=== PATIENT | female | born 1955 | race African-American/Black ===

== ENCOUNTER 2019-11-25 06:10 | Inpatient (IN) ==
[2019-11-25] MEDS ORDERED: DUONEB 0.5 MG/3 MG (3 mL) NEB ONE ×5 (06:17→07:43)
[2019-11-25] MEDS ORDERED: APRESOLINE INJ 20 MG VIAL IVP ONE (06:25)
[2019-11-25] MEDS ORDERED: SOLU-Medrol 125 MG VIAL IVP ONE (06:25)
[2019-11-25 06:29] VITALS: BMI 23.6
[2019-11-25] MEDS ORDERED: SOLU-Medrol 125 MG VIAL ONE (06:30)
[2019-11-25] MEDS ORDERED: APRESOLINE INJ 20 MG VIAL ONE (06:31)
[2019-11-25 06:43] LABS: BASOPHILS # (AUTO) 0.1 X10^3/uL (0.0-0.1); BASOPHILS % (AUTO) 1.3 % (0.2-1.0); EOSINOPHILS # (AUTO) 2.5 x10^3/uL (0.0-0.2); EOSINOPHILS % (AUTO) 27.9 % (0.9-2.9); HEMATOCRIT 43.4 % (36.0-47.0); HEMOGLOBIN 14.3 g/dL (12.0-16.0); LYMPHOCYTES # (AUTO) 1.5 X10^3/uL (1.3-2.9); MEAN CORPUSCULAR HGB CONC 32.9 g/dL (33.0-35.0); MEAN CORPUSCULAR VOLUME 91.3 fL (80.0-100.0); MEAN PLATELET VOLUME 8.9 fL (7.4-11.0); MONOCYTES # (AUTO) 0.6 x10^3/uL (0.3-0.8); MONOCYTES % (AUTO) 6.8 % (0.0-13.0); NEUTROPHILS # (AUTO) 4.2 x10^3/uL (2.2-4.8); PLATELET COUNT 247 X10^3/uL (150.0-450.0); RED BLOOD COUNT 4.76 X10^6/uL (3.5-5.4); RED CELL DISTRIBUTION WIDTH 14.7 % (11.6-16.5)
--- NOTE | 2019-11-25 06:47 | DR.SOBA ---
HPI Time Seen Time Seen by Provider: 11/25/19 06:25 HPI Comment HPI Comment: Asthmatic pt w/worsening cough, wheezing and sob x one day although she's been coughing for the past month; treated once by [facility] without relief; no fever, chills, myalgia; repeat occurrences every years d/t "pollen"; no cig arettes. BP has been high for at least a month; she is taking her meds as written; no cp or palpitations. PMH PMH Past Medical History: Asthma and Hypertension Past Surgical History: Yes Surgical History: Family History Family Medical History: Hypertension infectious screening Isolation: Standard ROS Review of Systems Constitutional: No Symptoms Reported ENTM: No Symptoms Reported Respiratoy: See HPI Cardiovascular: No Symptoms Reported Gastrointestinal/Abdominal: No Symptoms Reported Genitourinary: No Symptoms Reported Neurological: No Symptoms Reported Musculoskeletal: No Symptoms Reported Integumentary: No Symptoms Reported Hematologic/Lymphatic: No Symptoms Reported Endocrine: No Symptoms Reported Psychiatric: No Symptoms Reported PE Vital Signs Vitals: Temperature 978 F Pulse Rate 75 Respiratory Rate 26 Blood Pressure 150/77 O2 Sat by Pulse Oximetry 95 General Limitations: No Limitations Head Head Exam: Normal Inspection, Atraumatic and Normocephalic Eyes Eye exam: Normal Appearance and PERRL ENT ENT Exam: Normal Exam Neck Neck Exam: Normal Inspection, Full ROM and Trachea Midline Chest Chest Inspection: Normal Inspection and Symmetric Chest Wall Rise Respiratory Respiratory Exam: Accessory Muscle Use, Prolonged Expiratory Phase and Respiratory Distress Respiratory Exam: Bilateral: Wheezing and Bilateral: Rhonchi Cardiovascular Cardiovascular Exam: Normal Rhythm and Tachycardia Abdominal Exam Abdominal Exam: Normal Inspection, Normal Bowel Sounds and Soft Extremities Extremities Exam: Normal Inspection and Full ROM Neurologic Neurological Exam: Alert, Oriented X3 and CN II-XII Intact Psychiatric Psychiatric Exam: Normal Affect Skin Skin Exam: Warm and Dry COURSE Treatment Treatment: 0743 sleeping w/audible wheezing Reevaluation 1st: Improved (0700 MINIMALLY IMPROVED) ROR Labs Reviewed Laboratory Results Reviewed?: Yes Result Diagrams: 11/25/19 06:34 11/25/19 06:34 Laboratory: WBC 9.0 X10^3/uL (3.6-10.0) 11/25/19 06:34 RBC 4.76 X10^6/uL (3.5-5.4) 11/25/19 06:34 Hgb 14.3 g/dL (12.0-16.0) 11/25/19 06:34 Hct 43.4 % (36.0-47.0) 11/25/19 06:34 MCV 91.3 fL (80.0-100.0) 11/25/19 06:34 MCH 30.0 pg (27.0-34.0) 11/25/19 06:34 MCHC 32.9 g/dL (33.0-35.0) L 11/25/19 06:34 RDW 14.7 % (11.6-16.5) 11/25/19 06:34 Plt Count 247 X10^3/uL (150.0-450.0) 11/25/19 06:34 Plt Count Comment Adequate (ADEQUATE) 11/25/19 06:34 MPV 8.9 fL (7.4-11.0) 11/25/19 06:34 Neut % (Auto) 47.0 % (42.0-75.0) 11/25/19 06:34 Lymph % (Auto) 17.0 % (21.0-51.0) L 11/25/19 06:34 [place] % (Auto) 6.8 % (0.0-13.0) 11/25/19 06:34 Eos % (Auto) 27.9 % (0.9-2.9) H 11/25/19 06:34 Baso % (Auto) 1.3 % (0.2-1.0) H 11/25/19 06:34 Neut # (Auto) 4.2 x10^3/uL (2.2-4.8) 11/25/19 06:34 Lymph # (Auto) 1.5 X10^3/uL (1.3-2.9) 11/25/19 06:34 [place]urt # (Auto) 0.6 x10^3/uL (0.3-0.8) 11/25/19 06:34 Eos # (Auto) 2.5 x10^3/uL (0.0-0.2) H 11/25/19 06:34 Baso # (Auto) 0.1 X10^3/uL (0.0-0.1) 11/25/19 06:34 Absolute Nucleated RBC 0.0 /100WBC 11/25/19 06:34 Total Counted 100 11/25/19 06:34 Neutrophils % (Manual) 56 % (39-76) 11/25/19 06:34 Lymphocytes % (Manual) 16 % (13-43) 11/25/19 06:34 Monocytes % (Manual) 5 % (4-9) 11/25/19 06:34 Eosinophils % (Manual) 23 % (0-6) H 11/25/19 06:34 Plt Morphology Comment Normal (NORMAL) 11/25/19 06:34 RBC Morphology Normal (NORMAL) 11/25/19 06:34 Sodium 143 mmol/L (136-145) 11/25/19 06:34 Corrected Sodium TNP 11/25/19 06:34 Potassium 3.2 mmol/L (3.5-5.1) L 11/25/19 06:34 Chloride 106 mmol/L (98-107) 11/25/19 06:34 Carbon Dioxide 28.8 mmol/L (21-32) 11/25/19 06:34 BUN 8 mg/dL (7-18) 11/25/19 06:34 Creatinine 0.81 mg/dL (0.55-1.02) 11/25/19 06:34 Est GFR (MDRD) Af Amer > 60 (>60) 11/25/19 06:34 Est GFR (MDRD) Non-Af > 60 (>60) 11/25/19 06:34 Glucose 96 mg/dL (65-99) 11/25/19 06:34 Calcium 9.4 mg/dL (8.5-10.1) 11/25/19 06:34 Corrected Calcium TNP 11/25/19 06:34 Total Bilirubin 0.40 mg/dL (0.2-1.0) 11/25/19 06:34 AST 21 Units/L (15-37) 11/25/19 06:34 ALT 14 Units/L (12-78) 11/25/19 06:34 Alkaline Phosphatase 131 Units/L (46-116) H 11/25/19 06:34 Total Protein 7.6 g/dL (6.4-8.2) 11/25/19 06:34 Albumin 3.9 g/dL (3.4-5.0) 11/25/19 06:34 Globulin 3.7 g/dL (2.5-4.5) 11/25/19 06:34 Albumin/Globulin Ratio 1.1 Ratio (1.1-2.1) 11/25/19 06:34 Influenza Type A (PCR) Negative (NEGATIVE) 11/25/19 06:43 Influenza Type B (PCR) Negative (NEGATIVE) 11/25/19 06:43 XRAY XRAY Interpreted by: Radiologist X-ray Results: PCXR: Findings consistent with bronchopneumonia, consisting of a focal left perihilar infiltrate and hazy interstitial lower lobe infiltrates. Radiographic follow-up recommended to ensure clearance. Opioid Opioid Risk Tool Age (Miguel box if 16-45): No History of Preadolescent Sexual Abuse: No Total: 0 Total Score Risk Category: Low Risk Copyright: Denny MCGHEE predicting aberrant behaviors Diagnosis Discharge Problem: Acute hypokalemia Pneumonia Qualifiers: Pneumonia type: due to unspecified organism Laterality: left Lung location: lower lobe of lung Qualified Code(s): J18.9 - Pneumonia, unspecified organism Instructions Forms: Excuse From Work Patient Portal
[2019-11-25 06:51] LABS: ALANINE AMINOTRANSFERASE 14 Units/L (12-78); ALBUMIN 3.9 g/dL (3.4-5.0); ALKALINE PHOSPHATASE 131 Units/L (46-116); ASPARTATE AMINO TRANSFERASE 21 Units/L (15-37); BLOOD UREA NITROGEN 8 mg/dL (7-18); CALCIUM 9.4 mg/dL (8.5-10.1); CARBON DIOXIDE 28.8 mmol/L (21-32); CHLORIDE 106 mmol/L (98-107); CREATININE 0.81 mg/dL (0.55-1.02); SODIUM 143 mmol/L (136-145); TOTAL PROTEIN 7.6 g/dL (6.4-8.2); eGFR NON BLACK RACES > 60 (>60)
--- NOTE | 2019-11-25 06:51 | RAD ---
HISTORYSOB, WHEEZINGSTUDYCHEST, 1 VIEWCOMPARISONNoneTECHNIQUEPortable chest x-rayFINDINGSThere is a left perihilar infiltrate. Subtle haziness of the interstitium is also demonstrated within the bilateral lung bases. Findings are consistent with bronchopneumonia. The heart size is normal. The aorta is mildly tortuous. The pleural spaces are clear. There is no free air or pneumothorax. No acute bony abnormalities are identified.IMPRESSIONFindings consistent with bronchopneumonia, consisting of a focal left perihilar infiltrate and hazy interstitial lower lobe infiltrates. Radiographic follow-up recommended to ensure clearanceElectronically signed by: GENEVA ALBERTO (Nov 25, 2019 06:49:52)
[2019-11-25 07:02] LABS: PLATELET MORPHOLOGY COMMENT NORMAL (NORMAL)
[2019-11-25] MEDS ORDERED: ROCEPHIN VIAL 1 GRAM 1 G in NS 100 ML IV + SPIKE MINIBAG* 100 ML IV ONE (07:06)
[2019-11-25] MEDS ORDERED: ZITHROMAX INJ 500 MG VIAL 500 MG in NS 250 ML IV 250 ML IV SCH (07:07)
[2019-11-25] MEDS ORDERED: K-DUR TAB 20 MEQ PO STA (07:42)
[2019-11-25] MEDS ORDERED: ZITHROMAX INJ 500 MG VIAL IV ONE (07:47)
[2019-11-25] MEDS ORDERED: K-DUR TAB 20 MEQ PO ONE (07:47)
[2019-11-25] MEDS ORDERED: ROCEPHIN VIAL 1 GRAM ONE (07:48)
[2019-11-25] MEDS ORDERED: NS 250 ML IV 500 ML IV ONE (07:49)
[2019-11-25] MEDS ORDERED: NS 100 ML IV + SPIKE MINIBAG* 100 ML IV ONE (07:49)
[2019-11-25] MEDS ORDERED: K-DUR TAB 20 MEQ PO SCH (09:00)
[2019-11-25] MEDS: ZESTORETIC 20/25 MG PO SCH (11:23)
[2019-11-25] MEDS: DUONEB 0.5 MG/3 MG (3 mL) NEB SCH ×3 (12:10→20:55)
--- NOTE | 2019-11-25 12:25 | DR.H&P ---
H&P - History & Physical for Day of: H&P Date: 11/25/19 - History of Present Illness History of Present Illness: 64 BF ER ADMISSION WITH CO SOB, WHEEZING, CCC. She is asthmatic pt w/worsening cough, wheezing and sob x one day although she's been coughing for the past month; treated in office at [facility] with IM rocephin, IM kenalog and decadron and po levaquin without improvement. Pt no fever, chills, myalgia; repeat occurrences every years d/t "pollen"; no cigarettes. BP has been high for at least a month; she is taking her meds as written; no cp or palpitations. - Past Medical History Past Medical History: Asthma, COPD, Hypertension - Past Surgical History Surgical History: - Family History Family Medical History: Hypertension - Social History Does patient currently use any type of tobacco product: No Have you used tobacco products in the last 12 months: No Type of Tobacco Use: None Does any household member use tobacco: No Alcohol Use: None - Medications Home Medications: No Known Drug Allergies Allergy (Verified 11/25/19 08:15) - Physical Exam Vital Signs: Temperature 97.7 F Pulse Rate [Left] 101 Pulse Rate 92 Respiratory Rate 22 Blood Pressure [Left Arm] 187/94 Blood Pressure 184/87 O2 Sat by Pulse Oximetry 97 Oriented: Normal Eyes: Normal Ear: Normal Nose: Normal Throat: Normal Respiratory: Diminished Throughout, Wheezes Throughout Cardiovascular: Tachycardia. negative: Edema Tenderness: Normal Skin: Decreased Turgur Musculoskeletal: Back:Lumbar Mood Description: Angry Affect: Anxious Speech Pattern: Clear, Appropriate - Assessment/Plan (1) Asthma attack Qualifiers: Asthma severity: moderate Asthma persistence: unspecified Qualified Code(s): J45.901 - Unspecified asthma with (acute) exacerbation Status: Acute Plan: admit, supplemental o2. iv atbx, iv solu medrol. genlte iv hydration cxr on admission, abg. verify home medications. resp therapy, sputum culture (2) Acute bronchitis Status: Acute (3) Hypertensive urgency Status: Acute - Allergies Allergies/Adverse Reactions: Allergies Allergy/AdvReac Type Severity Reaction Status Date / Time No Known Drug Allergies Allergy Verified 11/25/19 08:15
[2019-11-25] MEDS: NS 1000 ML 1,000 ML IV SCH ×2 (14:12→22:00)
[2019-11-25 15:02] LABS: MAGNESIUM 1.9 mg/dL (1.7-2.9)
[2019-11-25] MEDS: PROTONIX INJ 40 MG VIAL IVP SCH (15:41)
[2019-11-25] MEDS: SOLU-Medrol 40 MG VIAL IVP SCH ×2 (15:41→21:01)
[2019-11-25] MEDS: APRESOLINE INJ 20 MG VIAL IVP PRN (15:42)
[2019-11-25] MEDS: PULMICORT NEB TX 0.5 MG NEB SCH (20:55)
[2019-11-25] MEDS: SINGULAIR TAB 10 MG PO SCH (21:00)
[2019-11-25] MEDS: NORCO 5/325 MG TAB PO PRN (23:39)
[2019-11-26] MEDS: APRESOLINE INJ 20 MG VIAL IVP PRN (00:47)
[2019-11-26] MEDS: DUONEB 0.5 MG/3 MG (3 mL) NEB SCH ×6 (01:02→20:40)
[2019-11-26] MEDS: NS 1000 ML 1,000 ML IV SCH ×2 (03:54→21:12)
[2019-11-26 06:38] LABS: BASOPHILS % (AUTO) 0.1 % (0.2-1.0); HEMATOCRIT 42.6 % (36.0-47.0); LYMPHOCYTES # (AUTO) 0.7 X10^3/uL (1.3-2.9); LYMPHOCYTES % (AUTO) 6.5 % (21.0-51.0); MEAN CORPUSCULAR HEMOGLOBIN 29.9 pg (27.0-34.0); MEAN CORPUSCULAR HGB CONC 32.9 g/dL (33.0-35.0); MEAN CORPUSCULAR VOLUME 90.9 fL (80.0-100.0); MEAN PLATELET VOLUME 9.7 fL (7.4-11.0); MONOCYTES # (AUTO) 0.5 x10^3/uL (0.3-0.8); MONOCYTES % (AUTO) 3.9 % (0.0-13.0); NEUTROPHILS # (AUTO) 10.3 x10^3/uL (2.2-4.8); NEUTROPHILS % (AUTO) 89.5 % (42.0-75.0); PLATELET COUNT 255 X10^3/uL (150.0-450.0); RED BLOOD COUNT 4.69 X10^6/uL (3.5-5.4); RED CELL DISTRIBUTION WIDTH 14.7 % (11.6-16.5); WHITE BLOOD COUNT 11.5 X10^3/uL (3.6-10.0)
[2019-11-26 06:40] LABS: ALANINE AMINOTRANSFERASE 15 Units/L (12-78); ALBUMIN 3.5 g/dL (3.4-5.0); ALKALINE PHOSPHATASE 119 Units/L (46-116); ASPARTATE AMINO TRANSFERASE 15 Units/L (15-37); BLOOD UREA NITROGEN 13 mg/dL (7-18); CALCIUM 9.7 mg/dL (8.5-10.1); CARBON DIOXIDE 23.2 mmol/L (21-32); CHLORIDE 108 mmol/L (98-107); COR NA(FOR HYPERGLY) 143 mmol/L (136-145); CREATININE 0.82 mg/dL (0.55-1.02); SODIUM 142 mmol/L (136-145); TOTAL PROTEIN 7.2 g/dL (6.4-8.2); eGFR NON BLACK RACES > 60 (>60)
[2019-11-26] MEDS: PULMICORT NEB TX 0.5 MG NEB SCH ×2 (08:22→20:40)
[2019-11-26] MEDS: ZESTORETIC 20/25 MG PO SCH (08:59)
[2019-11-26] MEDS: SOLU-Medrol 40 MG VIAL IVP SCH (08:59)
[2019-11-26] MEDS: PROTONIX INJ 40 MG VIAL IVP SCH (08:59)
[2019-11-26 09:15] LABS: ABG BASE EXCESS -0.3 mmol/L (-2.0-2.0); ABG HCO3 22.6 mmol/L (22-26)
[2019-11-26] MEDS ORDERED: ROBITUSSIN DM PO PRN (14:09)
[2019-11-26] MEDS: LOVENOX INJ 40 MG SYR SC SCH (14:12)
[2019-11-26] MEDS: LEVAQUIN PREMIX IV 500 MG 500 MG/100 ML BAG IV SCH (18:36)
[2019-11-26] MEDS: NORCO 5/325 MG TAB PO PRN (18:38)
[2019-11-26] MEDS: NORVASC TAB 5 MG PO SCH (18:38)
[2019-11-26] MEDS: ROBITUSSIN DM PO SCH ×2 (18:48→21:11)
[2019-11-26] MEDS: SINGULAIR TAB 10 MG PO SCH (21:11)
[2019-11-27] MEDS: ROBITUSSIN DM PO SCH ×6 (01:00→20:20)
[2019-11-27] MEDS: DUONEB 0.5 MG/3 MG (3 mL) NEB SCH ×6 (01:15→21:15)
[2019-11-27] MEDS: NS 1000 ML 1,000 ML IV SCH ×2 (03:03→20:19)
[2019-11-27 06:08] LABS: BASOPHILS % (AUTO) 0.2 % (0.2-1.0); HEMOGLOBIN 12.7 g/dL (12.0-16.0); LYMPHOCYTES # (AUTO) 1.1 X10^3/uL (1.3-2.9); LYMPHOCYTES % (AUTO) 7.8 % (21.0-51.0); MEAN CORPUSCULAR HEMOGLOBIN 29.8 pg (27.0-34.0); MEAN CORPUSCULAR HGB CONC 32.6 g/dL (33.0-35.0); MEAN CORPUSCULAR VOLUME 91.2 fL (80.0-100.0); MEAN PLATELET VOLUME 9.8 fL (7.4-11.0); MONOCYTES # (AUTO) 1.1 x10^3/uL (0.3-0.8); MONOCYTES % (AUTO) 7.2 % (0.0-13.0); NEUTROPHILS # (AUTO) 12.3 x10^3/uL (2.2-4.8); NEUTROPHILS % (AUTO) 84.8 % (42.0-75.0); PLATELET COUNT 230 X10^3/uL (150.0-450.0); RED BLOOD COUNT 4.27 X10^6/uL (3.5-5.4); RED CELL DISTRIBUTION WIDTH 15.3 % (11.6-16.5); WHITE BLOOD COUNT 14.5 X10^3/uL (3.6-10.0)
[2019-11-27 06:13] LABS: ALANINE AMINOTRANSFERASE 14 Units/L (12-78); ALBUMIN 3.1 g/dL (3.4-5.0); ALKALINE PHOSPHATASE 93 Units/L (46-116); ASPARTATE AMINO TRANSFERASE 14 Units/L (15-37); BLOOD UREA NITROGEN 14 mg/dL (7-18); CALCIUM 8.9 mg/dL (8.5-10.1); CARBON DIOXIDE 24.1 mmol/L (21-32); CHLORIDE 109 mmol/L (98-107); COR CA(FOR HYPOALB) 9.6 mg/dL (8.5-10.1); CREATININE 0.88 mg/dL (0.55-1.02); SODIUM 143 mmol/L (136-145); TOTAL PROTEIN 6.4 g/dL (6.4-8.2); eGFR NON BLACK RACES > 60 (>60)
[2019-11-27] MEDS ORDERED: KLOR-CON PO PRN (06:37)
[2019-11-27] MEDS ORDERED: K-RIDER 10 MEQ/NS 100 ML 10 MEQ/100 ML BAG IV PRN (06:37)
[2019-11-27] MEDS ORDERED: K-DUR TAB 20 MEQ PO PRN (06:37)
[2019-11-27] MEDS ORDERED: MAGNESIUM SULFATE 1 GRAM/100 mL PREMIX 1 GM/100 ML BAG IV PRN (06:37)
[2019-11-27] MEDS ORDERED: POTASSIUM CHLORIDE LIQ 20 MEQ UDC PO PRN (06:37)
[2019-11-27] MEDS ORDERED: MICRO K EXTEN CAP 10 MEQ PO PRN (06:37)
[2019-11-27] MEDS ORDERED: POTASSIUM CHL 40 MEQ/NS 0.45% 500 ML IV PRN (06:37)
[2019-11-27] MEDS ORDERED: POTASSIUM CHL 60 MEQ/NS 0.45% 500 ML IV PRN (06:37)
[2019-11-27] MEDS: LEVAQUIN PREMIX IV 500 MG 500 MG/100 ML BAG IV SCH (08:29)
[2019-11-27] MEDS: ZESTORETIC 20/25 MG PO SCH (08:30)
[2019-11-27] MEDS: NORVASC TAB 5 MG PO SCH (08:30)
[2019-11-27] MEDS: LOVENOX INJ 40 MG SYR SC SCH (08:31)
[2019-11-27] MEDS: PROTONIX INJ 40 MG VIAL IVP SCH (08:31)
[2019-11-27] MEDS: PULMICORT NEB TX 0.5 MG NEB SCH ×2 (09:27→21:15)
--- NOTE | 2019-11-27 10:37 | RAD ---
HISTORYFollow up pneumoniaSTUDYChest PA and lateral [id number] is a small area of persistent left parahilar infiltrate. Heart size remains normal with tortuous dilatation of the aorta and clear right chest. There is no new consolidation or developing pleural fluid.IMPRESSIONImproving but persistent left parahilar infiltrate. Continued follow-up indicated.Electronically signed by: KINA HUERTA (Nov 27, 2019 10:35:34)
[2019-11-27] MEDS: DIFLUCAN 200 MG IV PREMIX* 200 MG/100 ML BAG IV SCH (11:43)
[2019-11-27] MEDS: NORCO 5/325 MG TAB PO PRN (17:00)
--- NOTE | 2019-11-27 17:58 | PCM.PROG ---
Progress Note - Progress Note for Day of Date of Exam: 11/27/19 - Subjective Subjective: Mrs. Mcnamara is a pleasant 64-year-old black female who was a patient of our private practice. She was an ER admission early yesterday morning with complaints of shortness of breath, wheezing, cough, cold, and congestion. The patient does have a history of asthma and chronic obstructive pulmonary disease, as well as uncontrolled hypertension. She states that she had been out of her medication at home. We treated her for bronchitis earlier last month with IM Rocephin and IM Kenalog and Decadron. She had taken a round of Levaquin without improvement, however, the patient states that she thought it would get better. She did not follow up in the office. The patient reported that she had been out day night and she reported that she had no sleep at all, just very short of breath. The patient was noted to be hypoxic on arrival with PO2 of 76. Her PCO2 was 31. She was started on supplemental oxygen, respiratory therapy, IV antibiotics, and IV steroids. Her potassium was 3.2, it was up to 3.4 this morning. Renal function BUN 14, CREAT 0.88. Her chest x-ray on admission showed bronchopneumonia with a left focal perihilar infiltrate. Repeat CXR this am revealed :Improving but persistent left parahilar infiltrate. We encouraged sputum production. She states that she coughed up a good bit last night. We did have a sputum obtained showing moderate gram positive cocci at this time, as well as some yeast. Her blood pressure medication had been resumed. - Past Medical Family Social History Past Med/Fam/Surg Hx: No changes since H&P Allergies: Allergies No Known Drug Allergies Allergy (Verified 11/25/19 08:15) - Review of Systems ROS: No change since H&P - Vital Signs and I&O's Vital Signs: Temperature 98.6 F Pulse Rate [Left] 96 Pulse Rate 94 Respiratory Rate 20 Blood Pressure [Left Arm] 160/97 Blood Pressure 184/87 O2 Sat by Pulse Oximetry 98 Intake and Output: Intake & Output 11/25/19 11/26/19 11/27/19 11/28/19 11:59 11:59 11:59 11:59 Intake Total 1760 / 1760 2272 / 2272 840 / 840 Balance 1760 / 1760 2272 / 2272 840 / 840 - Physical Exam Oriented: Normal Eyes: Normal Ear: Normal Nose: Normal Throat: Normal Respiratory: Diminished, Wheezes, Rhonchi Cardiovascular: Tachycardia. negative: Edema Tenderness: Normal Skin: Decreased Turgur Musculoskeletal: Back:Lumbar Mood Description: Angry Affect: Anxious Speech Pattern: Clear, Appropriate - Laboratory and Diagnostics Result Diagrams: 11/27/19 05:18 11/27/19 11:11 Labs: 11/25/19 09:00 Sputum - Expectorated Sputum Sputum Culture - Final 11/25/19 09:00 Sputum - Expectorated Sputum - Final 11/25/19 09:15 Blood Blood Culture - Preliminary 11/25/19 08:20 Blood Blood Culture - Preliminary Laboratory WBC 14.5 X10^3/uL (3.6-10.0) H 11/27/19 05:18 RBC 4.27 X10^6/uL (3.5-5.4) 11/27/19 05:18 Hgb 12.7 g/dL (12.0-16.0) 11/27/19 05:18 Hct 39.0 % (36.0-47.0) 11/27/19 05:18 MCV 91.2 fL (80.0-100.0) 11/27/19 05:18 MCH 29.8 pg (27.0-34.0) 11/27/19 05:18 MCHC 32.6 g/dL (33.0-35.0) L 11/27/19 05:18 RDW 15.3 % (11.6-16.5) 11/27/19 05:18 Plt Count 230 X10^3/uL (150.0-450.0) 11/27/19 05:18 Plt Count Comment Adequate (ADEQUATE) 11/25/19 06:34 MPV 9.8 fL (7.4-11.0) 11/27/19 05:18 Neut % (Auto) 84.8 % (42.0-75.0) H 11/27/19 05:18 Lymph % (Auto) 7.8 % (21.0-51.0) L 11/27/19 05:18 [place] % (Auto) 7.2 % (0.0-13.0) 11/27/19 05:18 Eos % (Auto) 0.0 % (0.9-2.9) L 11/27/19 05:18 Baso % (Auto) 0.2 % (0.2-1.0) 11/27/19 05:18 Neut # (Auto) 12.3 x10^3/uL (2.2-4.8) H 11/27/19 05:18 Lymph # (Auto) 1.1 X10^3/uL (1.3-2.9) L 11/27/19 05:18 [place] # (Auto) 1.1 x10^3/uL (0.3-0.8) H 11/27/19 05:18 Eos # (Auto) 0.0 x10^3/uL (0.0-0.2) 11/27/19 05:18 Baso # (Auto) 0.0 X10^3/uL (0.0-0.1) 11/27/19 05:18 Absolute Nucleated RBC 0.0 /100WBC 11/27/19 05:18 Total Counted 100 11/25/19 06:34 Neutrophils % (Manual) 56 % (39-76) 11/25/19 06:34 Lymphocytes % (Manual) 16 % (13-43) 11/25/19 06:34 Monocytes % (Manual) 5 % (4-9) 11/25/19 06:34 Eosinophils % (Manual) 23 % (0-6) H 11/25/19 06:34 Plt Morphology Comment Normal (NORMAL) 11/25/19 06:34 RBC Morphology Normal (NORMAL) 11/25/19 06:34 Sample Site [facility] 11/26/19 09:06 ABG pH 7.470 (7.35-7.45) H 11/26/19 09:06 ABG pCO2 31.0 mmHg (35.0-45.0) L 11/26/19 09:06 ABG pO2 76.0 mmHg (80.0-100.0) L 11/26/19 09:06 ABG HCO3 22.6 mmol/L (22-26) 11/26/19 09:06 ABG O2 Saturation 96.0 % (90-100) 11/26/19 09:06 ABG Base Excess -0.3 mmol/L (-2.0-2.0) 11/26/19 09:06 Nic Test N/a 11/26/19 09:06 A-a Gradient 85.0 mmHg 11/26/19 09:06 FiO2 28.0 11/26/19 09:06 Blood Gas Comments Pt sabrina well elj 11/26/19 09:06 Sodium 143 mmol/L (136-145) 11/27/19 05:18 Corrected Sodium TNP 11/27/19 05:18 Potassium 3.4 mmol/L (3.5-5.1) L 11/27/19 11:11 Chloride 109 mmol/L (98-107) H 11/27/19 05:18 Carbon Dioxide 24.1 mmol/L (21-32) 11/27/19 05:18 BUN 14 mg/dL (7-18) 11/27/19 05:18 Creatinine 0.88 mg/dL (0.55-1.02) 11/27/19 05:18 Est GFR (MDRD) Af Amer > 60 (>60) 11/27/19 05:18 Est GFR (MDRD) Non-Af > 60 (>60) 11/27/19 05:18 Glucose 100 mg/dL (65-99) H 11/27/19 05:18 Calcium 8.9 mg/dL (8.5-10.1) 11/27/19 05:18 Corrected Calcium 9.6 mg/dL (8.5-10.1) 11/27/19 05:18 Magnesium 1.8 mg/dL (1.7-2.9) 11/27/19 05:18 Total Bilirubin 0.30 mg/dL (0.2-1.0) 11/27/19 05:18 AST 14 Units/L (15-37) L 11/27/19 05:18 ALT 14 Units/L (12-78) 11/27/19 05:18 Alkaline Phosphatase 93 Units/L (46-116) 11/27/19 05:18 Total Protein 6.4 g/dL (6.4-8.2) 11/27/19 05:18 Albumin 3.1 g/dL (3.4-5.0) L 11/27/19 05:18 Globulin 3.3 g/dL (2.5-4.5) 11/27/19 05:18 Albumin/Globulin Ratio 0.9 Ratio (1.1-2.1) L 11/27/19 05:18 Influenza Type A (PCR) Negative (NEGATIVE) 11/25/19 06:43 Influenza Type B (PCR) Negative (NEGATIVE) 11/25/19 06:43 - Plan (1) Asthma attack Status: Acute Qualifiers: Asthma severity: moderate Asthma persistence: unspecified Qualified Code(s): J45.901 - Unspecified asthma with (acute) exacerbation Plan: continue supplemental o2. iv atbx, iv solu medrol. genlte iv hydration, abg. resp therapy, sputum culture obtained on admission (2) Acute bronchitis Status: Acute (3) Hypertensive urgency Status: Acute
[2019-11-27] MEDS: SINGULAIR TAB 10 MG PO SCH (20:20)
[2019-11-28] MEDS: ROBITUSSIN DM PO SCH ×6 (01:11→21:42)
[2019-11-28] MEDS: DUONEB 0.5 MG/3 MG (3 mL) NEB SCH ×6 (01:18→20:56)
[2019-11-28] MEDS: NS 1000 ML 1,000 ML IV SCH (02:20)
[2019-11-28 06:42] LABS: BASOPHILS % (AUTO) 0.5 % (0.2-1.0); EOSINOPHILS # (AUTO) 0.7 x10^3/uL (0.0-0.2); EOSINOPHILS % (AUTO) 8.6 % (0.9-2.9); HEMATOCRIT 41.4 % (36.0-47.0); HEMOGLOBIN 13.4 g/dL (12.0-16.0); LYMPHOCYTES # (AUTO) 1.7 X10^3/uL (1.3-2.9); LYMPHOCYTES % (AUTO) 19.8 % (21.0-51.0); MEAN CORPUSCULAR HEMOGLOBIN 29.6 pg (27.0-34.0); MEAN CORPUSCULAR HGB CONC 32.3 g/dL (33.0-35.0); MEAN CORPUSCULAR VOLUME 91.7 fL (80.0-100.0); MEAN PLATELET VOLUME 10.3 fL (7.4-11.0); MONOCYTES # (AUTO) 0.8 x10^3/uL (0.3-0.8); NEUTROPHILS # (AUTO) 5.1 x10^3/uL (2.2-4.8); NEUTROPHILS % (AUTO) 61.1 % (42.0-75.0); PLATELET COUNT 201 X10^3/uL (150.0-450.0); RED BLOOD COUNT 4.51 X10^6/uL (3.5-5.4); RED CELL DISTRIBUTION WIDTH 15.1 % (11.6-16.5); WHITE BLOOD COUNT 8.4 X10^3/uL (3.6-10.0)
[2019-11-28 07:24] LABS: ALANINE AMINOTRANSFERASE 14 Units/L (12-78); ALBUMIN 3.2 g/dL (3.4-5.0); ALKALINE PHOSPHATASE 100 Units/L (46-116); ASPARTATE AMINO TRANSFERASE 20 Units/L (15-37); BLOOD UREA NITROGEN 12 mg/dL (7-18); CHLORIDE 106 mmol/L (98-107); COR CA(FOR HYPOALB) 9.6 mg/dL (8.5-10.1); CREATININE 0.73 mg/dL (0.55-1.02); SODIUM 141 mmol/L (136-145); TOTAL PROTEIN 6.6 g/dL (6.4-8.2); eGFR NON BLACK RACES > 60 (>60)
[2019-11-28] MEDS: PULMICORT NEB TX 0.5 MG NEB SCH ×2 (09:14→20:56)
[2019-11-28] MEDS: LEVAQUIN PREMIX IV 500 MG 500 MG/100 ML BAG IV SCH (10:56)
[2019-11-28] MEDS: ZESTORETIC 20/25 MG PO SCH (10:57)
[2019-11-28] MEDS: PROTONIX INJ 40 MG VIAL IVP SCH (10:57)
[2019-11-28] MEDS: NORVASC TAB 5 MG PO SCH (10:57)
[2019-11-28] MEDS: LOVENOX INJ 40 MG SYR SC SCH (10:58)
[2019-11-28] MEDS: DIFLUCAN 200 MG IV PREMIX* 200 MG/100 ML BAG IV SCH (12:31)
[2019-11-28] MEDS: SINGULAIR TAB 10 MG PO SCH (21:42)
[2019-11-29] MEDS: ROBITUSSIN DM PO SCH ×3 (01:00→09:43)
[2019-11-29] MEDS: DUONEB 0.5 MG/3 MG (3 mL) NEB SCH ×3 (01:05→08:24)
[2019-11-29] MEDS: NS 1000 ML 1,000 ML IV SCH (05:31)
[2019-11-29 06:41] LABS: BASOPHILS % (AUTO) 0.5 % (0.2-1.0); EOSINOPHILS # (AUTO) 1.7 x10^3/uL (0.0-0.2); EOSINOPHILS % (AUTO) 16.8 % (0.9-2.9); HEMATOCRIT 40.6 % (36.0-47.0); HEMOGLOBIN 13.4 g/dL (12.0-16.0); LYMPHOCYTES # (AUTO) 1.5 X10^3/uL (1.3-2.9); LYMPHOCYTES % (AUTO) 15.6 % (21.0-51.0); MEAN CORPUSCULAR VOLUME 90.9 fL (80.0-100.0); MEAN PLATELET VOLUME 9.7 fL (7.4-11.0); MONOCYTES # (AUTO) 0.9 x10^3/uL (0.3-0.8); MONOCYTES % (AUTO) 8.9 % (0.0-13.0); NEUTROPHILS # (AUTO) 5.8 x10^3/uL (2.2-4.8); NEUTROPHILS % (AUTO) 58.2 % (42.0-75.0); PLATELET COUNT 234 X10^3/uL (150.0-450.0); RED BLOOD COUNT 4.46 X10^6/uL (3.5-5.4); RED CELL DISTRIBUTION WIDTH 15.1 % (11.6-16.5); WHITE BLOOD COUNT 9.9 X10^3/uL (3.6-10.0)
[2019-11-29 07:08] LABS: ALANINE AMINOTRANSFERASE 13 Units/L (12-78); ALBUMIN 3.2 g/dL (3.4-5.0); ALKALINE PHOSPHATASE 104 Units/L (46-116); ASPARTATE AMINO TRANSFERASE 13 Units/L (15-37); BLOOD UREA NITROGEN 12 mg/dL (7-18); CALCIUM 8.9 mg/dL (8.5-10.1); CARBON DIOXIDE 26.1 mmol/L (21-32); CHLORIDE 104 mmol/L (98-107); COR CA(FOR HYPOALB) 9.5 mg/dL (8.5-10.1); CREATININE 0.81 mg/dL (0.55-1.02); SODIUM 141 mmol/L (136-145); TOTAL PROTEIN 6.4 g/dL (6.4-8.2); eGFR NON BLACK RACES > 60 (>60)
[2019-11-29] MEDS: PULMICORT NEB TX 0.5 MG NEB SCH (08:24)
[2019-11-29] MEDS: ZESTORETIC 20/25 MG PO SCH (09:43)
[2019-11-29] MEDS: LEVAQUIN PREMIX IV 500 MG 500 MG/100 ML BAG IV SCH (09:43)
[2019-11-29] MEDS: NORVASC TAB 5 MG PO SCH (09:44)
[2019-11-29] MEDS: LOVENOX INJ 40 MG SYR SC SCH (09:44)
[2019-11-29] MEDS: PROTONIX INJ 40 MG VIAL IVP SCH (09:44)
[2019-11-29 09:57] VITALS: BP 141/82
== END 2019-11-29 12:00 | disposition home or self-care (01) | DRG 194 ==
LOC: ER 06:10 → MED/SURG 06:10 → OBSVTOIN 08:02 → MED/SURG 08:50
PROVIDERS: ADMIT Obstetrics & Gynecology Obstetrics; ATTEND Internal Medicine
DX: J45.901 Unspecified asthma with (acute) exacerbation; J44.9 Chronic obstructive pulmonary disease, unspecified; R06.02 Shortness of breath; I16.0 Hypertensive urgency; J44.0 Chronic obstructive pulmonary disease with (acute) lower respiratory infection; B37.89 Other sites of candidiasis; J20.8 Acute bronchitis due to other specified organisms; E87.6 Hypokalemia; R26.89 Other abnormalities of gait and mobility; J18.0 Bronchopneumonia, unspecified organism
CPT/HCPCS: 36415; 36600; 71010; 71020; 71045; 71046; 80053; 82803; 83735; 84132; 85025; 87040; 87070; 87205; 87502; 94640; 94760; 96365; 96374; 96375; 97116; 97161; 99284; A4216; A4222; C9113; J0360; J0456; J0696; J1450; J1650; J1956; J2920; J2930; J7030; J7050; J7620; J7626

== ENCOUNTER 2021-07-27 10:59 | Observation (INO) ==
[2021-07-27 13:57] VITALS: BMI 27.4
--- NOTE | 2021-07-27 14:13 | CT ---
BRAIN W/O CONCLINICAL INDICATION: LEFT FACIAL DROOPING, LEFT SIDE WEAKNESSTECHNIQUE: Images were obtained through the head per standard CT protocol. Multiplanar reformatted images were generated from the CT dataset. Dose reduction techniques including Automated Exposure Control (AEC) and adjustment of mA and kV were utlized.COMPARISON:NoneFINDINGS:Diffuse patchy and confluent periventricular and subcortical hypoattenuation with associated volume loss . There is no evidence of acute infarction, intracranial hemorrhage, mass or mass effect, or abnormal extra-axial collection . The density of the larger dural venous sinuses is normal. Age-related, ex-vacuo dilatation of the ventricles and sulci . The skull base and calvarium are normal . The included paranasal sinuses and mastoid air cells are predominantly clear .IMPRESSION:1. No acute intracranial abnormality. Chronic microangiopathic changes and ex vacuo dilatation of the ventricles and sulci.[]Electronically signed by: KONSTANTIN PÉREZ (Jul 27, 2021 14:10:32)
[2021-07-27 14:21] LABS: BASOPHILS % (AUTO) 0.1 % (0.2-1.0); HEMATOCRIT 49.6 % (36.0-47.0); HEMOGLOBIN 16.4 g/dL (12.0-16.0); LYMPHOCYTES # (AUTO) 0.6 X10^3/uL (1.3-2.9); LYMPHOCYTES % (AUTO) 4.4 % (21.0-51.0); MEAN CORPUSCULAR HEMOGLOBIN 30.6 pg (27.0-34.0); MEAN CORPUSCULAR VOLUME 92.7 fL (80.0-100.0); MEAN PLATELET VOLUME 10.3 fL (7.4-11.0); MONOCYTES # (AUTO) 0.3 x10^3/uL (0.3-0.8); MONOCYTES % (AUTO) 1.9 % (0.0-13.0); NEUTROPHILS # (AUTO) 12.2 x10^3/uL (2.2-4.8); NEUTROPHILS % (AUTO) 93.6 % (42.0-75.0); PLATELET COUNT 246 X10^3/uL (150.0-450.0); RED BLOOD COUNT 5.36 X10^6/uL (3.5-5.4); RED CELL DISTRIBUTION WIDTH 15.2 % (11.6-16.5); WHITE BLOOD COUNT 13.1 X10^3/uL (3.6-10.0)
--- NOTE | 2021-07-27 14:27 | RAD ---
HISTORYBronchitis facial droopingSTUDYAP [id number] size normal with clear lungs and pleural spaces. There is no infiltrate, CHF or pleural fluid identified. Hilar structures are symmetric.IMPRESSIONNo acute chest findings.Electronically signed by: KINA HUERTA (Jul 27, 2021 14:25:18)
[2021-07-27 14:28] LABS: BASOPHILS % (MANUAL) 1 % (0-1); PLATELET MORPHOLOGY COMMENT NORMAL (NORMAL)
[2021-07-27] MEDS: NS 1,000 ML IV 1,000 ML IV SCH (14:48)
[2021-07-27 14:51] LABS: BLOOD UREA NITROGEN 22 mg/dL (7-18); CREATININE 1.03 mg/dL (0.55-1.02); TROPONIN I < 0.02 ng/mL (0-1.5); eGFR NON BLACK RACES 57 (>60)
[2021-07-27 15:46] LABS: APPEARANCE,URINE CLEAR (CLEAR); BACTERIA,URINE TRACE /HPF (NEGATIVE); BILIRUBIN,URINE NEGATIVE (NEGATIVE); BLOOD/HEMOGLOBIN,URINE 1+ (NEGATIVE); COLOR,URINE YELLOW (YELLOW); GLUCOSE, URINE NEGATIVE (NEGATIVE); KETONES,URINE NEGATIVE (NEGATIVE); LEUKOCYTE ESTERASE ,URINE NEGATIVE (NEGATIVE); NITRITES,URINE NEGATIVE (NEGATIVE); PROTEIN,URINE 1+ (NEGATIVE); SQUAMOUS EPITHELIAL CELL,UR FEW /HPF (NEGATIVE); UROBILINOGEN,URINE NORMAL (NORMAL)
[2021-07-27 15:51] LABS: ALANINE AMINOTRANSFERASE 25 Units/L (12-78); ALBUMIN 3.9 g/dL (3.4-5.0); ALKALINE PHOSPHATASE 106 Units/L (46-116); ASPARTATE AMINO TRANSFERASE 19 Units/L (15-37); CALCIUM 9.5 mg/dL (8.5-10.1); CARBON DIOXIDE 23.5 mmol/L (21-32); CHLORIDE 107 mmol/L (98-107); CREATINE KINASE 116 Units/L (26-192); CREATINE KINASE MB 2.3 ng/mL (0-4.0); MAGNESIUM 2.2 mg/dL (1.7-2.9); SODIUM 143 mmol/L (136-145); TOTAL PROTEIN 7.2 g/dL (6.4-8.2)
[2021-07-27] MEDS ORDERED: DUONEB 0.5 MG/3 MG (3 mL) NEB ONE (17:20)
[2021-07-27] MEDS: DUONEB 0.5 MG/3 MG (3 mL) NEB SCH ×2 (17:25→21:44)
--- NOTE | 2021-07-27 18:03 | DR.H&P ---
H&P - History & Physical for Day of: H&P Date: 07/27/21 - Chief Complaint Chief Complaint: left side facial droop, elevated blood pressure, chest pain - History of Present Illness History of Present Illness: PT IS 66 BF DIRECT ADMIT FROM DR LIAO OFFICE AFTER PRESENTING WITH CO ER FOLLOW UP. PT STATES SHE HAD NEAR SYNCOPE AT HOME FOLLOWED BY LEFT SIDE FACIAL DROOPING. PT REPORTED TO ER ON 07/23 AND DIAGNOSED WITH BELLS PALSY. PT REPORTS SHE HAD BEEN SICK WITH SINUS, BRONCHITIS SYMPTOMS PRIOR TO THAT TIME. PT TOOK ROUND OF LEVAQUIN AND STEROIDS FINISHING ON 07/14. PT REPORTS SHE FEELS TIGHT IN CHEST AND CO LEFT SIDE OF NECK PAIN, SEVERE FOR SEVERAL DAYS. PT DENIES ANY KNOWN CAD. PT HAS PMH OF HTN, ASTHMA, COPD AND HYPERLIPIDEMIA. PT HAD BOTH MODERNA VACCINATIONS AND DENIES ANY KNOWN COVID EXPOSURE. - Past Medical History Past Medical History: Asthma, COPD, Dyslipidemia, GERD, Hypertension - Past Surgical History Surgical History: - Family History Family Medical History: Heart Failure, Hypertension - Social History Does patient currently use any type of tobacco product: No Have you used tobacco products in the last 12 months: No Type of Tobacco Use: None Does any household member use tobacco: Yes (Daughther and Son-in-law) Alcohol Use: None Drug Use: None Prescription drug monitoring program results: PDMP reviewed and no concerns identified - Medications Home Medications: No Known Drug Allergies Allergy (Verified 07/27/21 13:40) - Review of Systems Constitutional: Weakness, Malaise Eyes: No Symptoms Reported ENT: No Symptoms Reported Respiratory: Cough, SOB with Excertion, Wheezing Cardiovascular: Chest Pain, Palpitations. denies: Edema Gastrointestinal: Nausea. denies: Vomiting, Diarrhea Genitourinary: No Symptoms Reported Musculoskeletal: Neck Pain Skin: No Symptoms Reported Neurological: Weakness - Physical Exam Vital Signs: Temperature 97.7 F Pulse Rate [Apical] 72 Pulse Rate 77 Respiratory Rate 26 Blood Pressure [Left Arm] 174/99 Blood Pressure [Right Arm] 176/82 Blood Pressure 158/76 O2 Sat by Pulse Oximetry 98 Oriented: Normal Eyes: Normal, Other (LEFT SIDE FACIAL DROOPING) Ear: Normal Nose: Normal Throat: Normal Respiratory: Wheezes Throughout, RLL Diminished, LLL Diminished Cardiovascular: Tachycardia. negative: Edema : Normal Auscultation: Bowel Sounds: Normal Palpation: Normal Tenderness: Normal Skin: Decreased Turgur Musculoskeletal: Normal Mood Description: Calm Speech Pattern: Clear, Appropriate - Assessment/Plan (1) Facial weakness Status: Acute Plan: ADMIT, CT HEAD ON ADMISSION. BP CONTROL, CAROTID AND ECHO, SERIAL CE AND EKG. VERIFY HOME MEDICATION. ADMISSION LABS AND CXR, SPEECH PT OT CONSULT. RESP THERAPY FOR ASTHMATIC BRONCHITIS, GENTLE IV HYDRATION (2) Hypertensive urgency Status: Acute (3) Acute bronchitis Status: Acute (4) COPD (chronic obstructive pulmonary disease) with acute bronchitis Status: Acute - Allergies Allergies/Adverse Reactions: Allergies Allergy/AdvReac Type Severity Reaction Status Date / Time No Known Drug Allergies Allergy Verified 07/27/21 13:40
--- NOTE | 2021-07-27 18:14 | VAS ---
HISTORYHTN, LEFT FACIAL WEAKNESSSTUDYCAROTID USCOMPARISONHead CT 07/27/2021TECHNIQUEForty-one images made by the managing director. Blum scale and color flow Doppler images of the right carotid arterial system, left carotid arterial system, and vertebral arterial system were obtained.FINDINGSVelocities are measured in centimeters per second. Recommendations are based on peer reviewed published data from Society of Radiologists in Ultrasound Consensus Conference, 2003.Right side: Right common carotid and internal carotid arteries are widely patent. Very minimal hard plaque noted in the right carotid bulb.Peak systolic velocity in the right common carotid artery measured 38. Peak systolic velocity in the right internal carotid artery measured 47. This yields a peak systolic velocity ratio of 1.2. The peak end diastolic velocity measured 14. This yields a stenosis of less than 50 percent.Right external carotid artery was patent. Flow in the right vertebral artery was antegrade.Left side: Left common carotid and internal carotid arteries are widely patent. Moderate hard plaque disease seen in the carotid bulb. There are echogenic areas with shadowing consistent with calcification.Peak systolic velocity in the left common carotid artery measured [38]. Peak systolic velocity in the left internal carotid artery measured [103]. This yields a peak systolic velocity ratio of [2.7]. The peak end diastolic velocity measured [32]. [Discrepant findings are noted. Peak velocity suggests a stenosis of less than 50 percent. But the velocity ratio suggests a stenosis between 50 and 69 percent. Since there is a moderate amount of plaque disease at this location, recommend CTA of the neck for further evaluation.]Left external carotid artery was patent. Flow in the left vertebral artery was antegrade.IMPRESSION1. Bilateral carotid bulb plaque disease, left side more than right2. Possible 50-69% left ICA stenosis; recommend CTA3. Less than 50% right ICA stenosisElectronically signed by: Quirino Kwok (Jul 27, 2021 18:12:09)
[2021-07-27] MEDS ORDERED: NORVASC TAB 10 MG PO SCH (19:00)
[2021-07-27] MEDS: ROCEPHIN VIAL 1 GRAM 1 G in NS 100 ML IV + SPIKE MINIBAG* 100 ML IV SCH (19:21)
[2021-07-27] MEDS: SINGULAIR TAB 10 MG PO SCH (19:50)
[2021-07-27] MEDS: PROTONIX TAB 40 MG PO SCH (19:50)
[2021-07-27] MEDS ORDERED: ZESTRIL TAB 20 MG ONE (20:16)
[2021-07-27] MEDS: ZESTRIL TAB 20 MG PO SCH (21:23)
[2021-07-27] MEDS: PULMICORT NEB TX 0.5 MG NEB SCH (21:44)
[2021-07-28 05:26] LABS: BASOPHILS % (AUTO) 0.5 % (0.2-1.0); EOSINOPHILS # (AUTO) 0.2 x10^3/uL (0.0-0.2); EOSINOPHILS % (AUTO) 1.7 % (0.9-2.9); HEMATOCRIT 42.5 % (36.0-47.0); LYMPHOCYTES # (AUTO) 2.3 X10^3/uL (1.3-2.9); MEAN CORPUSCULAR HEMOGLOBIN 30.3 pg (27.0-34.0); MEAN CORPUSCULAR HGB CONC 33.1 g/dL (33.0-35.0); MEAN CORPUSCULAR VOLUME 91.6 fL (80.0-100.0); MEAN PLATELET VOLUME 9.8 fL (7.4-11.0); MONOCYTES # (AUTO) 0.8 x10^3/uL (0.3-0.8); NEUTROPHILS # (AUTO) 6.1 x10^3/uL (2.2-4.8); NEUTROPHILS % (AUTO) 64.8 % (42.0-75.0); PLATELET COUNT 213 X10^3/uL (150.0-450.0); RED BLOOD COUNT 4.64 X10^6/uL (3.5-5.4); WHITE BLOOD COUNT 9.4 X10^3/uL (3.6-10.0)
[2021-07-28 05:43] LABS: ALANINE AMINOTRANSFERASE 24 Units/L (12-78); ALBUMIN 3.3 g/dL (3.4-5.0); ALKALINE PHOSPHATASE 88 Units/L (46-116); ASPARTATE AMINO TRANSFERASE 16 Units/L (15-37); BLOOD UREA NITROGEN 18 mg/dL (7-18); CALCIUM 8.8 mg/dL (8.5-10.1); CARBON DIOXIDE 25.9 mmol/L (21-32); CHLORIDE 107 mmol/L (98-107); CKMB % 2.3 % (<4); COR CA(FOR HYPOALB) 9.4 mg/dL (8.5-10.1); CREATINE KINASE 60 Units/L (26-192); CREATINE KINASE MB 1.4 ng/mL (0-4.0); CREATININE 0.95 mg/dL (0.55-1.02); SODIUM 143 mmol/L (136-145); TOTAL PROTEIN 6.1 g/dL (6.4-8.2); TROPONIN I < 0.02 ng/mL (0-1.5); eGFR NON BLACK RACES > 60 (>60)
[2021-07-28] MEDS ORDERED: KLOR-CON PO PRN (05:58)
[2021-07-28] MEDS ORDERED: POTASSIUM CHLORIDE LIQ 20 MEQ UDC PO PRN (05:58)
[2021-07-28] MEDS ORDERED: K-DUR TAB 20 MEQ PO PRN (05:58)
[2021-07-28] MEDS ORDERED: DUONEB 0.5 MG/3 MG (3 mL) NEB ONE ×3 (08:20→16:22)
[2021-07-28] MEDS ORDERED: PULMICORT NEB TX 0.5 MG NEB ONE (08:20)
[2021-07-28] MEDS ORDERED: ZESTRIL TAB 20 MG ONE ×2 (08:38→19:55)
[2021-07-28] MEDS: PULMICORT NEB TX 0.5 MG NEB SCH ×2 (08:40→20:38)
[2021-07-28] MEDS: DUONEB 0.5 MG/3 MG (3 mL) NEB SCH ×4 (08:40→20:38)
[2021-07-28] MEDS: ROCEPHIN VIAL 1 GRAM 1 G in NS 100 ML IV + SPIKE MINIBAG* 100 ML IV SCH (08:42)
[2021-07-28] MEDS: NORVASC TAB 10 MG PO SCH (08:42)
[2021-07-28] MEDS: SINGULAIR TAB 10 MG PO SCH (08:42)
[2021-07-28] MEDS: ZESTRIL TAB 20 MG PO SCH ×2 (08:42→20:15)
[2021-07-28] MEDS: PROTONIX TAB 40 MG PO SCH (08:42)
[2021-07-28 14:50] LABS: CKMB % 2.3 % (<4); CREATINE KINASE 60 Units/L (26-192); CREATINE KINASE MB 1.4 ng/mL (0-4.0); TROPONIN I < 0.02 ng/mL (0-1.5)
[2021-07-28] MEDS: NS 1,000 ML IV 1,000 ML IV SCH (14:55)
[2021-07-28] MEDS ORDERED: DUONEB 0.5 MG/3 MG (3 mL) NEB PRN (16:19)
[2021-07-28] MEDS: ASPIRIN EC 81 MG PO SCH (18:12)
--- NOTE | 2021-07-28 18:42 | PCM.PROG ---
Progress Note - Subjective Subjective: Patient is a 66 year old AAF who was admitted due to left sided weakness, left facial droop, and slurred speech. Daughter at bedside. Daughter and patient report symptoms are improving daily. Patient is able to ambulate and perform all ADLs without assistance. CT head negative, US carotids reveals stenosis. MRI brain and CTA carotids pending. Plan for dc in am. - Past Medical Family Social History Past Med/Fam/Surg Hx: No changes since H&P Allergies: Allergies No Known Drug Allergies Allergy (Verified 07/27/21 13:40) - Review of Systems ROS: No change since H&P - Vital Signs and I&O's Vital Signs: Temperature 98.8 F Pulse Rate [Apical] 72 Pulse Rate 104 Respiratory Rate 59 Blood Pressure [Left Arm] 174/99 Blood Pressure [Right Arm] 176/82 Blood Pressure 146/82 O2 Sat by Pulse Oximetry 98 Intake and Output: Intake & Output 07/25/21 07/26/21 07/27/21 07/28/21 23:59 23:59 23:59 23:59 Intake Total 570 / 570 550 / 550 Output Total 300 / 300 Balance 270 / 270 550 / 550 - Physical Exam Oriented: Normal, Time, Person, Place Eyes: Normal, Other (LEFT SIDE FACIAL DROOPING) Ear: Normal Nose: Normal Throat: Normal Respiratory: Normal Cardiovascular: Tachycardia. negative: Edema : Normal Auscultation: Bowel Sounds: Normal Palpation: Normal Tenderness: Normal Skin: Decreased Turgur Musculoskeletal: Normal (Slight left sided drift upon ambulation) Psychiatric: Normal Mood Description: Calm Affect: Normal Speech Pattern: Clear, Appropriate (No slurred speech normal) - Laboratory and Diagnostics Result Diagrams: 07/28/21 05:00 07/28/21 13:14 Labs: 07/27/21 14:30 Urine,Clean Catch Urine Culture - Preliminary Laboratory WBC 9.4 X10^3/uL (3.6-10.0) 07/28/21 05:00 RBC 4.64 X10^6/uL (3.5-5.4) 07/28/21 05:00 Hgb 14.0 g/dL (12.0-16.0) D 07/28/21 05:00 Hct 42.5 % (36.0-47.0) 07/28/21 05:00 MCV 91.6 fL (80.0-100.0) 07/28/21 05:00 MCH 30.3 pg (27.0-34.0) 07/28/21 05:00 MCHC 33.1 g/dL (33.0-35.0) 07/28/21 05:00 RDW 15.0 % (11.6-16.5) 07/28/21 05:00 Plt Count 213 X10^3/uL (150.0-450.0) 07/28/21 05:00 Plt Count Comment Adequate (ADEQUATE) 07/27/21 14:00 MPV 9.8 fL (7.4-11.0) 07/28/21 05:00 Neut % (Auto) 64.8 % (42.0-75.0) 07/28/21 05:00 Lymph % (Auto) 24.0 % (21.0-51.0) 07/28/21 05:00 [place] % (Auto) 9.0 % (0.0-13.0) 07/28/21 05:00 Eos % (Auto) 1.7 % (0.9-2.9) 07/28/21 05:00 Baso % (Auto) 0.5 % (0.2-1.0) 07/28/21 05:00 Neut # (Auto) 6.1 x10^3/uL (2.2-4.8) H 07/28/21 05:00 Lymph # (Auto) 2.3 X10^3/uL (1.3-2.9) 07/28/21 05:00 [place] # (Auto) 0.8 x10^3/uL (0.3-0.8) 07/28/21 05:00 Eos # (Auto) 0.2 x10^3/uL (0.0-0.2) 07/28/21 05:00 Baso # (Auto) 0.0 X10^3/uL (0.0-0.1) 07/28/21 05:00 Absolute Nucleated RBC 0.1 /100WBC 07/28/21 05:00 Total Counted 100 07/27/21 14:00 Neutrophils % (Manual) 91 % (39-76) H 07/27/21 14:00 Lymphocytes % (Manual) 7 % (13-43) L 07/27/21 14:00 Monocytes % (Manual) 1 % (4-9) L 07/27/21 14:00 Basophils % (Manual) 1 % (0-1) 07/27/21 14:00 Plt Morphology Comment Normal (NORMAL) 07/27/21 14:00 RBC Morphology Normal (NORMAL) 07/27/21 14:00 Sodium 143 mmol/L (136-145) 07/28/21 05:00 Corrected Sodium TNP 07/28/21 05:00 Potassium 4.2 mmol/L (3.5-5.1) 07/28/21 13:14 Chloride 107 mmol/L (98-107) 07/28/21 05:00 Carbon Dioxide 25.9 mmol/L (21-32) 07/28/21 05:00 BUN 18 mg/dL (7-18) 07/28/21 05:00 Creatinine 0.95 mg/dL (0.55-1.02) 07/28/21 05:00 Est GFR (MDRD) Af Amer > 60 (>60) 07/28/21 05:00 Est GFR (MDRD) Non-Af > 60 (>60) 07/28/21 05:00 Glucose 84 mg/dL (65-99) 07/28/21 05:00 Calcium 8.8 mg/dL (8.5-10.1) 07/28/21 05:00 Corrected Calcium 9.4 mg/dL (8.5-10.1) 07/28/21 05:00 Magnesium 2.2 mg/dL (1.7-2.9) 07/27/21 15:24 Total Bilirubin 0.30 mg/dL (0.2-1.0) 07/28/21 05:00 AST 16 Units/L (15-37) 07/28/21 05:00 ALT 24 Units/L (12-78) 07/28/21 05:00 Alkaline Phosphatase 88 Units/L (46-116) 07/28/21 05:00 Creatine Kinase 60 Units/L (26-192) 07/28/21 13:14 CK-MB (CK-2) 1.4 ng/mL (0-4.0) 07/28/21 13:14 CK/CKMB % Calc 2.3 % (<4) 07/28/21 13:14 Troponin I < 0.02 ng/mL (0-1.5) 07/28/21 13:14 Total Protein 6.1 g/dL (6.4-8.2) L 07/28/21 05:00 Albumin 3.3 g/dL (3.4-5.0) L 07/28/21 05:00 Globulin 2.8 g/dL (2.5-4.5) 07/28/21 05:00 Albumin/Globulin Ratio 1.2 Ratio (1.1-2.1) 07/28/21 05:00 Specimen Type Clean catch urine 07/27/21 14:30 Urine Color Yellow (YELLOW) 07/27/21 14:30 Urine Appearance Clear (CLEAR) 07/27/21 14:30 Urine pH 5.0 (5.0 - 8.0) 07/27/21 14:30 Ur Specific [place] 1.020 (1.000-1.030) 07/27/21 14:30 Urine Protein 1+ (NEGATIVE) 07/27/21 14:30 Urine Glucose (UA) Negative (NEGATIVE) 07/27/21 14:30 Urine Ketones Negative (NEGATIVE) 07/27/21 14:30 Urine Occult Blood 1+ (NEGATIVE) 07/27/21 14:30 Urine Nitrite Negative (NEGATIVE) 07/27/21 14:30 Urine Bilirubin Negative (NEGATIVE) 07/27/21 14:30 Urine Urobilinogen Normal (NORMAL) 07/27/21 14:30 Ur Leukocyte Esterase Negative (NEGATIVE) 07/27/21 14:30 Urine RBC 3-5 /HPF (0-3) A 07/27/21 14:30 Urine WBC 0-2 /HPF (0-5) 07/27/21 14:30 Ur Squamous Epith Cells Few /HPF (NEGATIVE) 07/27/21 14:30 Urine Bacteria Trace /HPF (NEGATIVE) 07/27/21 14:30 Ur Culture Indicated? No/not indicated 07/27/21 14:30 SARS-CoV-2 (PCR) Negative (NEGATIVE) 07/27/21 11:48 Influenza Type A (PCR) Negative (NEGATIVE) 07/27/21 11:48 Influenza Type B (PCR) Negative (NEGATIVE) 07/27/21 11:48 RSV (PCR) Negative (NEGATIVE) 11/01/21 11:48 - Plan (1) Left-sided weakness Status: Acute Plan: PT. Labs in am. Plan for DC in am (2) Facial weakness Status: Acute Plan: ADMIT, CT HEAD ON ADMISSION. BP CONTROL, CAROTID AND ECHO, SERIAL CE AND EKG. VERIFY HOME MEDICATION. ADMISSION LABS AND CXR, SPEECH PT OT CONSULT. RESP THERAPY FOR ASTHMATIC BRONCHITIS, GENTLE IV HYDRATION (3) Hypertension Status: Acute Plan: BP control-home meds (4) TIA (transient ischemic attack) Status: Acute Plan: ASA. CT head negative. MRI brain pend. CTA neck/carotids pending
--- NOTE | 2021-07-28 19:05 | MRI ---
HISTORYLEFT SIDED WEAKNESS symptoms have been present for 1 weekSTUDYBRAIN W/O CONCOMPARISONHead CT 07/27/2021TECHNIQUEMultiplanar multisequence MRI of the brain was obtained without contrast using standard departmental protocol.FINDINGSDiffusion sequences show a focal area of high signal in the anterior left temporal periventricular region. This only measures about 5 mm. Is probably artifactual but some of the ADC maps show low signal at this location. It could represent a very tiny lacunar infarct although it is a slightly atypical location.Age-related findings include central and cortical atrophy with abnormal signal in the periventricular white matter, most likely the micro-ischemic changes of aging.Otherwise holly and white matter have normal differentiation. There is no mass, shift, or hemorrhage. Cerebellar tonsils are at an appropriate level.There is normal signal flow void in the central vessels and the large dural sinuses. Susceptibility sequences show multiple areas of focal low signal predominantly in the central brain but a few peripherally. Findings are most consistent with hypertensive microangiopathy.There is mucosal thickening in almost all visualized air cells. Fluid in the maxillary sinuses are present. Findings are most consistent with acute on chronic pansinusitis.IMPRESSION1. Artifact versus tiny 5 mm lacunar infarct in the left temporal white matter2. No acute cortical infarct or hemorrhage3. Findings consistent with hypertensive microangiopathy4. Acute on chronic pansinusitisElectronically signed by: Quirino Kwok (Jul 28, 2021 19:03:00)
[2021-07-28] MEDS: VALTREX PO SCH (20:15)
[2021-07-28] MEDS ORDERED: PULMICORT NEB TX 0.5 MG NEB SCH (21:00)
[2021-07-29] MEDS: APRESOLINE INJ 20 MG VIAL IVP PRN ×2 (03:27→11:08)
[2021-07-29] MEDS ORDERED: MAALOX or MYLANTA PO PRN (05:23)
[2021-07-29 05:30] LABS: BASOPHILS % (AUTO) 0.3 % (0.2-1.0); EOSINOPHILS # (AUTO) 0.7 x10^3/uL (0.0-0.2); EOSINOPHILS % (AUTO) 7.7 % (0.9-2.9); HEMATOCRIT 45.2 % (36.0-47.0); LYMPHOCYTES # (AUTO) 2.1 X10^3/uL (1.3-2.9); LYMPHOCYTES % (AUTO) 24.4 % (21.0-51.0); MEAN CORPUSCULAR HEMOGLOBIN 30.4 pg (27.0-34.0); MEAN CORPUSCULAR HGB CONC 33.2 g/dL (33.0-35.0); MEAN CORPUSCULAR VOLUME 91.6 fL (80.0-100.0); MEAN PLATELET VOLUME 9.9 fL (7.4-11.0); MONOCYTES # (AUTO) 0.9 x10^3/uL (0.3-0.8); MONOCYTES % (AUTO) 10.8 % (0.0-13.0); NEUTROPHILS # (AUTO) 4.9 x10^3/uL (2.2-4.8); NEUTROPHILS % (AUTO) 56.8 % (42.0-75.0); PLATELET COUNT 244 X10^3/uL (150.0-450.0); RED BLOOD COUNT 4.94 X10^6/uL (3.5-5.4); RED CELL DISTRIBUTION WIDTH 15.4 % (11.6-16.5); WHITE BLOOD COUNT 8.7 X10^3/uL (3.6-10.0)
[2021-07-29 05:51] LABS: ALANINE AMINOTRANSFERASE 25 Units/L (12-78); ALBUMIN 3.5 g/dL (3.4-5.0); ALKALINE PHOSPHATASE 97 Units/L (46-116); ASPARTATE AMINO TRANSFERASE 14 Units/L (15-37); BLOOD UREA NITROGEN 11 mg/dL (7-18); CALCIUM 9.3 mg/dL (8.5-10.1); CARBON DIOXIDE 21.9 mmol/L (21-32); CHLORIDE 109 mmol/L (98-107); CREATININE 0.83 mg/dL (0.55-1.02); SODIUM 144 mmol/L (136-145); TOTAL PROTEIN 6.6 g/dL (6.4-8.2); eGFR NON BLACK RACES > 60 (>60)
[2021-07-29] MEDS ORDERED: ZESTRIL TAB 20 MG ONE ×2 (08:20→20:30)
[2021-07-29] MEDS: ZESTRIL TAB 20 MG PO SCH ×2 (08:27→20:47)
[2021-07-29] MEDS: ASPIRIN EC 81 MG PO SCH (08:27)
[2021-07-29] MEDS: NORVASC TAB 10 MG PO SCH (08:27)
[2021-07-29] MEDS: PROTONIX TAB 40 MG PO SCH (08:28)
[2021-07-29] MEDS: ROCEPHIN VIAL 1 GRAM 1 G in NS 100 ML IV + SPIKE MINIBAG* 100 ML IV SCH (08:28)
[2021-07-29] MEDS: SINGULAIR TAB 10 MG PO SCH (08:28)
[2021-07-29] MEDS ORDERED: DUONEB 0.5 MG/3 MG (3 mL) NEB ONE ×3 (09:28→15:55)
[2021-07-29] MEDS ORDERED: PULMICORT NEB TX 0.5 MG NEB ONE (09:28)
[2021-07-29] MEDS: PULMICORT NEB TX 0.5 MG NEB SCH ×2 (09:50→20:25)
[2021-07-29] MEDS: DUONEB 0.5 MG/3 MG (3 mL) NEB SCH ×3 (09:50→16:10)
[2021-07-29] MEDS: VALTREX PO SCH ×2 (10:11→20:48)
[2021-07-29 10:50] LABS: CHOL/HDL RATIO 2.2 (0.0-5.0)
[2021-07-29 13:11] LABS: CKMB % 2.7 % (<4); CREATINE KINASE 64 Units/L (26-192); CREATINE KINASE MB 1.7 ng/mL (0-4.0); TROPONIN I < 0.02 ng/mL (0-1.5)
[2021-07-29] MEDS: NS 1,000 ML IV 1,000 ML IV SCH (14:50)
[2021-07-29 15:37] LABS: CKMB % 3.8 % (<4); CREATINE KINASE 64 Units/L (26-192); CREATINE KINASE MB 2.4 ng/mL (0-4.0); TROPONIN I < 0.02 ng/mL (0-1.5)
[2021-07-29 17:02] LABS: BILIRUBIN,URINE NEGATIVE (NEGATIVE); BLOOD/HEMOGLOBIN,URINE NEGATIVE (NEGATIVE); GLUCOSE, URINE NEGATIVE (NEGATIVE); KETONES,URINE NEGATIVE (NEGATIVE); LEUKOCYTE ESTERASE ,URINE NEGATIVE (NEGATIVE); NITRITES,URINE NEGATIVE (NEGATIVE); PROTEIN,URINE 1+ (NEGATIVE); UROBILINOGEN,URINE NORMAL (NORMAL)
[2021-07-29 17:33] LABS: APPEARANCE,URINE CLEAR (CLEAR); COLOR,URINE YELLOW (YELLOW)
[2021-07-29 17:34] LABS: BACTERIA,URINE TRACE /HPF (NEGATIVE); RBC,URINE NONE SEEN /HPF (0-3); SQUAMOUS EPITHELIAL CELL,UR FEW /HPF (NEGATIVE)
--- NOTE | 2021-07-29 18:50 | CT ---
CT ANGIOGRAM OF THE NECK WITHOUT AND WITH IV CONTRASTCLINICAL INDICATION: TIATECHNIQUE: Images were obtained through the neck per standard CTA protocol. Multiplanar reformatted, MIP, and volume rendered images were generated from the CT dataset. Dose reduction techniques including Automated Exposure Control (AEC) and adjustment of mA and kV were utlized.COMPARISON:None.FINDINGS:The imaged aortic arch is normal . The origins of the brachiocephalic, bilateral common carotid, bilateral subclavian, and bilateral vertebral arteries demonstrate no significant stenosis . The bilateral internal and external carotid arteries are patent. The right ICA is very tortuous and takes a strong U turn best seen on series 6 image 166 resulting in approximately 50 percent stenosis. 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 Overall there is no sign hemodynamically significant stenosis..The cervical vertebral arteries are normal .There is no evidence of arterial dissection, significant stenosis, occlusion, extravasation of contrast material, arteriovenous fistula, or pseudoaneurysm .The visualized soft tissues of the neck appear normal.There is extensive peribronchovascular thickening and nodularity involving primarily the left upper lobe for example on series 5, image 44.IMPRESSION:1.Findings as above without evidence of hemodynamically significant stenosis of the carotid arteries.2. Peribronchovascular thickening involving the left upper lobe. Correlate clinically as malignancy not excluded.Electronically signed by: KONSTANTIN PÉREZ (Jul 29, 2021 18:48:20)
[2021-07-29] MEDS ORDERED: XOPENEX 1.25 MG/3 ML NEBULE NEB ONE (19:22)
[2021-07-29] MEDS ORDERED: TYLENOL 325 MG TAB PO PRN (19:46)
[2021-07-29] MEDS: XOPENEX 1.25 MG/3 ML NEBULE NEB SCH (20:25)
[2021-07-29] MEDS: LOPRESSOR TAB 25 MG PO SCH (20:48)
[2021-07-30] MEDS: XOPENEX 1.25 MG/3 ML NEBULE NEB SCH ×2 (05:04→13:25)
[2021-07-30 05:33] LABS: BASOPHILS % (AUTO) 0.4 % (0.2-1.0); EOSINOPHILS # (AUTO) 0.8 x10^3/uL (0.0-0.2); EOSINOPHILS % (AUTO) 8.9 % (0.9-2.9); HEMATOCRIT 44.9 % (36.0-47.0); HEMOGLOBIN 14.9 g/dL (12.0-16.0); LYMPHOCYTES # (AUTO) 1.8 X10^3/uL (1.3-2.9); LYMPHOCYTES % (AUTO) 20.5 % (21.0-51.0); MEAN CORPUSCULAR HEMOGLOBIN 30.4 pg (27.0-34.0); MEAN CORPUSCULAR HGB CONC 33.2 g/dL (33.0-35.0); MEAN CORPUSCULAR VOLUME 91.6 fL (80.0-100.0); MEAN PLATELET VOLUME 9.8 fL (7.4-11.0); MONOCYTES # (AUTO) 0.8 x10^3/uL (0.3-0.8); MONOCYTES % (AUTO) 8.8 % (0.0-13.0); NEUTROPHILS # (AUTO) 5.5 x10^3/uL (2.2-4.8); NEUTROPHILS % (AUTO) 61.4 % (42.0-75.0); PLATELET COUNT 256 X10^3/uL (150.0-450.0); RED CELL DISTRIBUTION WIDTH 15.5 % (11.6-16.5)
[2021-07-30 05:47] LABS: ALANINE AMINOTRANSFERASE 23 Units/L (12-78); ALBUMIN 3.4 g/dL (3.4-5.0); ALKALINE PHOSPHATASE 97 Units/L (46-116); ASPARTATE AMINO TRANSFERASE 14 Units/L (15-37); BLOOD UREA NITROGEN 13 mg/dL (7-18); CALCIUM 9.4 mg/dL (8.5-10.1); CARBON DIOXIDE 23.7 mmol/L (21-32); CHLORIDE 108 mmol/L (98-107); SODIUM 143 mmol/L (136-145); TOTAL PROTEIN 6.5 g/dL (6.4-8.2); eGFR NON BLACK RACES > 60 (>60)
[2021-07-30] MEDS ORDERED: ZESTRIL TAB 20 MG ONE (08:58)
[2021-07-30] MEDS: PULMICORT NEB TX 0.5 MG NEB SCH (09:20)
[2021-07-30] MEDS: PROTONIX TAB 40 MG PO SCH (09:30)
[2021-07-30] MEDS: ZESTRIL TAB 20 MG PO SCH (09:30)
[2021-07-30] MEDS: VALTREX PO SCH (09:30)
[2021-07-30] MEDS: ROCEPHIN VIAL 1 GRAM 1 G in NS 100 ML IV + SPIKE MINIBAG* 100 ML IV SCH (09:30)
[2021-07-30] MEDS: NORVASC TAB 10 MG PO SCH (09:30)
[2021-07-30] MEDS: SINGULAIR TAB 10 MG PO SCH (09:30)
[2021-07-30] MEDS: LOPRESSOR TAB 25 MG PO SCH (09:30)
[2021-07-30] MEDS: ASPIRIN EC 81 MG PO SCH (09:44)
[2021-07-30] MEDS: NS 1,000 ML IV 1,000 ML IV SCH (12:47)
--- NOTE | 2021-07-30 15:09 | CT ---
HISTORYneck pain, TIASTUDYCERVICAL SPINE W/O CONCOMPARISONNone availableTECHNIQUEMultiple axial images of the cervical spine were obtained from the skull base to the thoracic inlet without administration of IV contrast. Sagittal and coronal reformats were performed and reviewed. Dose reduction techniques including Automated Exposure Control (AEC) and adjustment of mA and kV were utilized.FINDINGSLoss of normal cervical lordosis with focal kyphosis of the mid cervical spine. No spondylolisthesis or acute fracture. No prevertebral soft tissue swelling.Moderate multilevel spondylosis and uncovertebral hypertrophy spanning C3-4, C4-5, C5-6 and to lesser degree C6-7. [id number] bony neural foraminal stenosis is noted at C3-4, C4-5 and C5-6.Bilateral left more severe than right calcified atherosclerotic disease of the common and internal carotid arteries.IMPRESSIONNo evidence for traumatic injury of the cervical spine.Moderate multilevel discogenic degenerative change with corresponding bony neural foraminal stenosis most severely affecting C3-4, C4-5 and C5-6 as described above.Bilateral left more severe than right calcified atherosclerotic disease of the common and internal carotid arteries. See recent CTA of the carotid arteries for further discussion.Electronically signed by: ALMITA CORADO (Jul 30, 2021 15:07:14)
[2021-07-30 16:57] VITALS: BP 155/87
== END 2021-07-30 16:40 | disposition home health service (06) ==
LOC: ICU → MERGE 11:27
PROVIDERS: ADMIT Internal Medicine; ATTEND Internal Medicine
DX: J44.9 Chronic obstructive pulmonary disease, unspecified; R94.31 Abnormal electrocardiogram [ECG] [EKG]; M54.2 Cervicalgia; R51.9 Headache, unspecified; Z20.828 Contact with and (suspected) exposure to other viral communicable diseases; K21.9 Gastro-esophageal reflux disease without esophagitis; R55 Syncope and collapse; J20.8 Acute bronchitis due to other specified organisms; G45.8 Other transient cerebral ischemic attacks and related syndromes; I16.0 Hypertensive urgency; E78.2 Mixed hyperlipidemia; R07.89 Other chest pain; R26.89 Other abnormalities of gait and mobility